=== PATIENT | female | born 1995 | race Caucasian/White ===

== ENCOUNTER 2017-07-31 14:19 | Emergency (ER) | payer OTHER ==
[2017-07-31] MEDS ORDERED: RANITIDINE 50 MG/2 ML VIAL IVP ONE (14:35)
[2017-07-31] MEDS ORDERED: methylPREDNISolone SOD SUCC 125 MG/2 ML VIAL IVP ONE (14:35)
[2017-07-31] MEDS ORDERED: NS 1,000 ML IV ONE (14:35)
--- NOTE | 2017-07-31 14:51 | EDPHY ---
H & P Stated Complaint: allergic reaction/facial/lip swelling/eyes Source: Patient, Family (Father) - Personal History LMP (Females 10-55): Now Current Tetanus/Diphtheria Vaccine: Yes - Medical/Surgical History Hx Asthma: No Hx Chronic Respiratory Disease: No Hx Diabetes: No Hx Cardiac Disease: No Hx Renal Disease: No Hx Cirrhosis: No Hx Alcoholism: No Hx HIV/AIDS: No Hx Splenectomy or Spleen Trauma: No Other PMH: DENIES PMH OR PSH - Social History Smoking Status: Never smoked Time Seen by Provider: 07/31/17 14:30 HPI/ROS: HPI: This is a 21-year-old female who presents with Chief Complaint: Hives to lip and eyes Location: Lip and eyes Quality: Eyes Duration: Prior to arrival Signs and Symptoms: No shortness of breath, no chest pain, no difficulty swallowing, no difficulty talking, no wheezing, no nausea, vomiting Timing: Sudden Severity: Moderate Context: Patient reports that she was in the emergency room waiting room when her father noticed that her lips were swollen with surrounding hives within a few minutes both eyes began to swell and have hives. She denies any new lotions , detergents, foods. She does wear contacts but they are new as of 2 days ago. For the last few days she has been experiencing some generalized abdominal pain and fatigue. PCP ordered labs [place] [id number] an unremarkable CMP. She was in the waiting room waiting to obtain a CT of her abdomen and pelvis to rule out appendicitis. She denies nausea, vomiting , anorexia. She is currently on her menses. No prior history of anaphylaxis/ allergies. Mother reports that Saturday she woke up in the middle of the night having chills and suspected fever. She complained of a stomachache that was generalized in nature. She had been out with friends and there was concern some concern of may be some food poisoning or stomach bug. She went to school on Saturday without difficulty. Saturday she started complaining of stomach discomfort again decreased appetite. Patient is very intelligent and under lot of stress for school. Denies vaginal discharge/dysuria. Modifying Factors: None Comment: ROS: see HPI Constitutional: No fever, no chills, no weight loss Eyes: No blurred vision Respiratory: No shortness of breath, no cough Cardiovascular: No chest pain Gastrointestinal: No nausea, no vomiting, no diarrhea Genitourinary: No dysuria Extremities: No myalgias Neurologic: No weakness, no numbness Skin: No rashes Hematologic: No bruising, no bleeding MEDICAL/SURGICAL/SOCIAL HISTORY: Medical history: Generally healthy. Does not take any regular medications. Surgical history: Denies Social history: Lives with her parents. CONSTITUTIONAL: Extremely polite nontoxic-appearing young adult white female, awake and alert, no obvious distress HEENT: Atraumatic and normocephalic, PERRL, EOMI. Periorbital puffiness with small hives in the lateral aspect noted. Conjunctiva clear. Tympanic membranes clear. Oropharynx clear, uvula midline, no tongue angioedema, bilateral lips show mild swelling, no exudate and moist pink mucosa. Airway patent. No lymphadenopathy. No meningismus. Cardiovascular: Normal S1/S2, regular rate, regular rhythm, without murmur rub or gallop. PULMONARY/CHEST: Symmetrical and nontender. Clear to auscultation bilaterally. Good air movement. No accessory muscle usage. ABDOMEN: Soft, nondistended, generalized nonfocal tenderness, no rebound, no guarding, no peritoneal signs, no masses or organomegaly. No CVAT. EXTREMITIES: 2/2 pulses, strength 5/5, no deformities, no clubbing, no cyanosis or edema. NEUROLOGICAL: no focal neuro deficits. GCS 15. SKIN: Warm and dry, no erythema. no rash. Good capillary refill. (Tanvi Magana) Constitutional: Initial Vital Signs Temperature (C) 37 C 07/31/17 14:21 Heart Rate 114 H 07/31/17 14:21 Respiratory Rate 22 H 07/31/17 14:21 Blood Pressure 95/66 L 07/31/17 14:21 O2 Sat (%) 96 07/31/17 14:21 O2 Delivery Mode Room Air Allergies/Adverse Reactions: amoxicillin Allergy (Verified 07/31/17 14:21) Home Medications: Medication Instructions Recorded Cephalexin [Keflex (*)] 500 mg PO QID #20 cap 07/31/17 Retin A 07/31/17 Medical Decision Making - Diagnostics Imaging Results: Imaging Impressions Abdomen CT 07/31/17 15:05 Impression: 1. Appendicolith without evidence of appendicitis or inflammation. 2. Right obturator foramen 5.5 x 4.2 x 5 cm cystic lesion, which may represent a benign labral cyst, hematoma, abscess, or cystic neoplasm. Recommend MRI of the pelvis without and with contrast enhancement for further evaluation. 3. No intraperitoneal fluid collection or inflammatory changes. Findings and recommendations discussed with Emergency Department physician, Tanvi Magana PA-C at 1616 hours on July 31, 2017. Final report concurs with initial preliminary interpretation. ED Course/Re-evaluation: Reviewed labs from today will not need to reorder No signs of anaphylaxis/airway compromise/angioedema Given IV Solu-Medrol 125 mg, IV Zantac, IV Benadryl complete relief of urticaria Will continue with the CT abdomen and pelvis while she is in the emergency room to rule out appendicitis per PCP concerns Urinalysis ordered 1500: reassessed patient: complete resolution of hives and lip swelling. Vital signs improved. Called by radiologist who advised that there are no signs of appendicitis, she does have appendicolith, Right obturator foramen 5.5 x 4.2 x 5 cm cystic lesion. Recommends MRI with and without of the pelvis to further evaluate to differentiate hematoma, abscess, malignancy, etc 1805: End of shift. Signed out to Dr. Martinez pending results of MRI pelvis. This patient was seen under the supervision of my secondary supervising physician. The patient was seen in conjunction with Dr. Martinez, who saw and evaluated the patient. Patient's presentation, labs/imaging, treatment and plan of care were discussed with primary supervising physician. (Tanvi Magana) 7:00 p.m.-MRI of the pelvis per Dr. Borrero reveals a guy-labral cyst. No evidence of abscess or other acute etiology. I had a prolonged discussion with the patient, and her parents. The patient is still quite drowsy because of Benadryl and slept throughout some of our conversation. She presents with generalized abdominal pain and leukocytosis. She was sent to the emergency department because of abdominal pain and for a CT scan of the abdomen pelvis. While she was in the waiting room, she had an allergic reaction, unclear etiology. The symptoms from her allergic reaction have now completely resolved. She denies abdominal pain. In review of all of her tests, she may have a urinary tract infection, with pyuria and hematuria. A urine culture was sent. Keflex 500 mg orally given. I will treat her for urinary tract infection, though I do not suspect that this is the etiology for her abdominal pain and she has no evidence of pyelonephritis by history or by CT scan. The MRI results were discussed with Dr. Mark menon and revealed no evidence of an abscess. The patient has no tenderness in the right groin area and has full range of motion of the right hip without pain. Abdomen is soft and nontender. The parents are aware that the final MRI reading will be tomorrow and if it is changed from the initial MRI, that we will call them with the results. I feel that she is safe and stable for discharge home. She is currently asymptomatic, though I am aware that this may be somewhat masked by the drowsiness related to Benadryl. Warning signs discussed with the parents. (Altagracia Martinez) Differential Diagnosis: Differential diagnosis includes but is not limited to angioedema, anaphylaxis, dermatitis. (Tanvi Magana) - Data Points Laboratory Results: 07/31/17 15:50 Urine Color PALE YELLOW Urine Appearance CLEAR Urine pH 6.0 (5.0-7.5) Ur Specific Jonancy 1.004 (1.002-1.030) Urine Protein NEGATIVE (NEGATIVE) Urine Ketones NEGATIVE (NEGATIVE) Urine Blood 1+ H (NEGATIVE) Urine Nitrate NEGATIVE (NEGATIVE) Urine Bilirubin NEGATIVE (NEGATIVE) Urine Urobilinogen NEGATIVE EU EU (0.2-1.0) Ur Leukocyte Esterase TRACE H (NEGATIVE) Urine RBC 5-10 /hpf H /hpf (0-3) Urine WBC 3-5 /hpf H /hpf (0-3) Ur Epithelial Cells TRACE /lpf /lpf (NONE-1+) Urine Bacteria TRACE /hpf H /hpf (NONE SEEN) Urine Glucose NEGATIVE (NEGATIVE) Medications Given: Discontinued Medications Cephalexin HCl (Keflex) 500 mg PO EDNOW ONE PRN Reason: Protocol Stop: 07/31/17 19:38 Last Admin: 07/31/17 19:50 Dose: 500 mg Diphenhydramine HCl (Benadryl Injection) 50 mg IVP EDNOW ONE Stop: 07/31/17 14:36 Last Admin: 07/31/17 14:40 Dose: 50 mg Sodium Chloride (Ns) 1,000 mls @ 0 mls/hr IV ONCE ONE; Wide Open PRN Reason: Protocol Stop: 07/31/17 14:36 Last Admin: 07/31/17 14:41 Dose: 1,000 mls Methylprednisolone Sodium Succinate (Solu-Medrol) 125 mg IVP EDNOW ONE Stop: 07/31/17 14:36 Last Admin: 07/31/17 14:41 Dose: 125 mg Ranitidine HCl (Zantac) 50 mg IVP EDNOW ONE Stop: 07/31/17 14:36 Last Admin: 07/31/17 14:40 Dose: 50 mg Departure - Departure Disposition: Home, Routine, Self-Care Clinical Impression: Allergic reaction Qualifiers: Encounter type: initial encounter Qualified Code(s): T78.40XA - Allergy, unspecified, initial encounter Abdominal pain Qualifiers: Abdominal location: generalized Qualified Code(s): R10.84 - Generalized abdominal pain Urinary tract infection Qualifiers: Urinary tract infection type: acute cystitis Hematuria presence: without hematuria Qualified Code(s): N30.00 - Acute cystitis without hematuria Condition: Good Instructions: Urinary Tract Infection in Women (ED), Urticaria (ED), Acute Abdominal Pain (ED) Additional Instructions: 1. Take Keflex as prescribed for urinary tract infection. I sent a urine culture. The results will be back in 2 days. 2. Ibuprofen 600 mg 3 times daily as needed for pain. Return for worsening abdominal pain, vomiting or any concerns. 3. Take Claritin for 3 days for allergic reaction. Return for worsening rash, swelling or any concerns. 4. You had an abdominal and pelvic CT scan today that showed no evidence of appendicitis. 5. You had an MRI today that revealed a cyst in the right obturator foramen. The final results of the study will be tomorrow. If there is a change in the MRI reading, we will call you. Referrals: Kristofer Florian MD [Medical Doctor] - 2-3 days, call for appt. Stand Alone Forms: School Excuse Prescriptions: Cephalexin [Keflex (*)] 500 mg PO QID #20 cap
[2017-07-31] MEDS ORDERED: IOPAMIDOL (ISOVUE-300) 100 ML BTL ONE (15:21)
[2017-07-31] MEDS ORDERED: GADOBUTROL 10 ML VIAL IVP ONE (17:04)
[2017-07-31 17:06] VITALS: RESP 16
[2017-07-31 17:26] LABS: COLOR PALE YELLOW; LEUKOCYTE ESTERASE,URINE TRACE (NEGATIVE); NITRITE,URINE NEGATIVE (NEGATIVE)
[2017-07-31 17:29] LABS: BACTERIA TRACE /hpf (NONE SEEN)
[2017-07-31] MEDS ORDERED: CEPHALEXIN 500 MG CAP PO ONE (19:37)
[2017-07-31 19:57] VITALS: BP 98/62; PULSE 98; TEMP 98.2; O2SAT 97
== END 2017-07-31 19:58 | disposition home or self-care (01) ==
DX: T78.40XA Allergy, unspecified, initial encounter (principal); R10.84 Generalized abdominal pain; N30.00 Acute cystitis without hematuria; E86.9 Volume depletion, unspecified; B95.4 Other streptococcus as the cause of diseases classified elsewhere
CPT/HCPCS: 96374; A9585; J1200; J2780; J2930; Q9967